=== PATIENT | male | born 1940 | race Caucasian/White ===

== ENCOUNTER 2021-10-08 12:39 | Emergency (ER) | payer OTHER ==
[2021-10-08 12:55] VITALS: BMI 22.2
[2021-10-08] MEDS ORDERED: BEBTELOVIMAB (EUA) 175 MG/2 ML VIAL IVPUSH ONE (14:02)
[2021-10-08 16:59] VITALS: BP 134/78; PULSE 61; TEMP 97.9
== END 2021-10-08 18:52 | disposition home or self-care (01) ==
LOC: JCOVINFU 12:39
DX: U07.1 COVID-19 (principal)
CPT/HCPCS: 99284-25; M0222; Q0222